=== PATIENT | female | born 1955 | race Caucasian/White ===

== ENCOUNTER 2024-01-31 10:45 | Emergency (ER) | payer MEDICARE, MEDICAID ==
[~2024-01-31] VITALS: Ht 162.6 cm; Wt 86.3 kg
[~2024-01-31 10:45] MED LIST: HYDR-4383 PO; MUPI1OIN8 BOTHNARES; PHEN-716 PO; PHEN-786 PO; PRED50TA PO
[2024-01-31 10:52] VITALS: BP 205/103; PULSE 98; RESP 18; TEMP 97.8; O2SAT 100
[2024-01-31] MEDS ORDERED: CEPH-585 PO (12:08)
[2024-01-31] MEDS ORDERED: NAPR-56 PO (12:08)
== END 2024-01-31 12:27 | disposition home or self-care (01) ==
LOC: ER 10:46
DX: S02.31XA Fracture of orbital floor, right side, initial encounter for closed fracture (principal); Z88.0 Allergy status to penicillin; Z88.2 Allergy status to sulfonamides; Z88.8 Allergy status to other drugs, medicaments and biological substances; J45.909 Unspecified asthma, uncomplicated; G89.29 Other chronic pain; M54.9 Dorsalgia, unspecified; F32.A Depression, unspecified; Z90.49 Acquired absence of other specified parts of digestive tract; F41.9 Anxiety disorder, unspecified; G43.909 Migraine, unspecified, not intractable, without status migrainosus; Y08.89XA Assault by other specified means, initial encounter; Y93.89 Activity, other specified; Y92.89 Other specified places as the place of occurrence of the external cause; Y99.8 Other external cause status; J32.9 Chronic sinusitis, unspecified
CPT/HCPCS: 70450; 70486; 72125; 99284